=== PATIENT | male | born 1935 ===

== ENCOUNTER 2018-02-15 16:27 | Emergency (ER) | payer MEDICARE, MEDICAID ==
[2018-02-15 16:27] VITALS: BMI 42.0
[2018-02-15 16:47] VITALS: O2SAT 97
--- NOTE | 2018-02-15 18:05 | ED PDOC ---
HPI: Trauma/Fall <Jordyn Flores - Last Filed: 02/15/18 19:21> - HPI Chief Complaint (Provider): Right Arm Pain, Left Hip Pain, Lower Back Pain History Per: Patient History/Exam Limitations: no limitations Onset/Duration Of Symptoms: Days (x3) Injury Occurred (Timing): Days Ago: (2) Location Of Injury: Right: Arm, Left: Hip Severity: None Associated Symptoms: denies: Dizziness, LOC - Fall Fall:Prior To Injury: Slipped <Vandana Diaz - Last Filed: 02/16/18 11:07> - HPI Time Seen by Provider: 02/15/18 17:00 Chief Complaint (Nursing): Back Pain Additional Complaint(s): 83 year old male with a past medical history of hypertension and arthritis presents to the emergency department post fall complaining of left hip pain, right arm pain and lower pain x3 days. Patient states that on Friday he was getting off then bus when he fell backwards landing on his right arm on back. He reports that since then he has been having pain in his left hip, right arm and lower back. Patient states that immediately after falling he went to see his primary care provider who sent him to outpatient radiology where he had xrays performed which were all negative, no fractures. He states that he has been taking advil but however the pain still persists. Patient reports that his right elbow is swollen and bruised. In addition, the patient states that the pain in his lower back is exacerbated by walking but he has been ambulatory since the fall. Denies head injury and any other injury. Also denies chest pain , syncope, shortness of breath. (Vandana Diaz) Past Medical History <Jordyn Flores - Last Filed: 02/15/18 19:21> Reviewed: Historical Data, Nursing Documentation, Vital Signs - Medical History PMH: Arthritis, Asthma, HTN, Rheumatoid Arthritis Denies: Chronic Kidney Disease - Surgical History Other surgeries: left shoulder surgery - Family History Family History: States: Unknown Family Hx <Vandana Diaz - Last Filed: 02/16/18 11:07> Vital Signs: Last Vital Signs Temp 98 F 02/15/18 21:24 Pulse 78 02/15/18 21:24 Resp 18 02/15/18 21:24 BP 158/87 H 02/15/18 21:24 Pulse Ox 97 02/16/18 05:14 - Home Medications Home Medications: Ambulatory Orders Medication Instructions Recorded Adalimumab [Humira Pen] 40 mg SQ QWK 07/28/17 Cyanocobalamin/Folic AC/Vit B6 [Tl 1 tab PO DAILY 07/28/17 Nba Rx Tablet] Losartan Potassium 50 mg PO DAILY 07/28/17 Montelukast Sodium [Singulair] 10 mg PO HS 07/28/17 - Allergies Allergies/Adverse Reactions: Allergies Allergy/AdvReac Type Severity Reaction Status Date / Time No Known Allergies Allergy Verified 02/15/18 16:44 Review of Systems ROS Statement: Except As Marked, All Systems Reviewed And Found Negative Cardiovascular: Negative for: Chest Pain Musculoskeletal: Positive for: Arm Pain (right), Back Pain (lower), Other (left hip pain) Neurological: Negative for: Headache, Dizziness <Vandana Diaz A - Last Filed: 02/16/18 11:07> Physical Exam - Reviewed Nursing Documentation Reviewed: Yes Vital Signs Reviewed: Yes - Physical Exam Appears: Positive for: Non-toxic, No Acute Distress Head Exam: Positive for: ATRAUMATIC, NORMAL INSPECTION, NORMOCEPHALIC Skin: Positive for: Normal Color, Warm, Dry. Negative for: Rash Eye Exam: Positive for: Normal appearance, EOMI, PERRL. Negative for: Nystagmus ENT: Positive for: Normal ENT Inspection. Negative for: Nasal Congestion, Tonsillar Exudate, Tonsillar Swelling Neck: Positive for: Normal, Painless ROM, Supple Cardiovascular/Chest: Positive for: Regular Rate, Rhythm, Chest Non Tender. Negative for: Tachycardia Respiratory: Positive for: Normal Breath Sounds. Negative for: Rales, Rhonchi, Wheezing, Respiratory Distress Gastrointestinal/Abdominal: Positive for: Normal Exam, Bowel Sounds, Soft. Negative for: Tenderness, Mass, Guarding, Rebound Back: Positive for: Other (back lower back diffuse tenderness ;no ecchymosis no deformities ). Negative for: L CVA Tenderness, R CVA Tenderness Extremity: Positive for: Swelling (Swelling present to medial aspect of right elbow with ecchymosis present to ulnar aspectas well as tenderness and painful rom.), Other (Left hip: Normal exam). Negative for: Deformity (left shoulder painful rom no deformity no swelling) Neurologic/Psych: Positive for: Alert, Oriented, Gait <Vandana Diaz - Last Filed: 02/16/18 11:07> - ECG O2 Sat by Pulse Oximetry: 97 (RA) Pulse Ox Interpretation: Normal <Vandana Diaz - Last Filed: 02/16/18 11:07> Medical Decision Making <Jordyn Flores - Last Filed: 02/15/18 19:21> <Vandana Diaz - Last Filed: 02/16/18 11:07> Medical Decision Makin Initial Impression 83 y/o male presenting with right arm injury, left hip injury and back injury Differentials: elbow fracture, shoulder fracture, hip fracture and lumbar spine fracture Initial plan: * CT Lumbar Spine w/o Contrast * Motrin Tab 400mg PO * RAD elbow right * RAD left Hip * RAD right shoulder * Reevaluation * * Elbow xray reviewd: possible medial epicondilar fracture. * Hip xray: quiestionable femoral neck fracture * Shoiulder xray: no acute findings * CT hip ordered Documented by Christiana Jim acting as a scribe for Vandana Diaz MD. All medical record entries made by the Scribe were at my direction and personally dictated by me. I have reviewed the chart and agree that the record accurately reflects my personal performance of the history, physical exam, medical decision making, and the department course for this patient. I have also personally directed, reviewed, and agree with the discharge instructions and disposition. (Vandana Diaz) Disposition - Patient ED Disposition Is Patient to be Admitted: Transfer of Care Counseled Patient/Family Regarding: Studies Performed, Diagnosis, Need For Followup - Disposition Disposition: Transfer of Care Disposition Time: 19:00 Patient Signed Over To: Ileana Trammell <Jordyn Flores - Last Filed: 02/15/18 19:21> <Vandana Diaz - Last Filed: 02/16/18 11:07> - Clinical Impression Clinical Impression: Elbow fracture, right, Back injury, Injury of left hip - Disposition Referrals: [facility] [Outside] Jefferson Thompson III, MD [Staff Provider] - Condition: IMPROVED Additional Instructions: follow up with orthopedist as instructed within 2 days take tylenol for pain as needed bring copy of CT with you return to the ED with any worsening or concerning symptoms Instructions: Elbow Fracture (DC) Print Language: VINCENTIAN
--- NOTE | 2018-02-15 19:49 | ED PDOC ---
- ECG O2 Sat by Pulse Oximetry: 97 (RA) Pulse Ox Interpretation: Normal Medical Decision Making Medical Decision Making: Patient signed out to provider at [address] Diaz pending CT scan. 1912 EXAM: CT Lumbar Spine Without Intravenous Contrast EXAM DATE/TIME: 02/15/2018 5:18 PM CLINICAL HISTORY: 83 years old, male; Injury or trauma; Fall; Initial encounter; Blunt trauma ( contusions or hematomas); Additional info: Lower back pain injury fall TECHNIQUE: Axial computed tomography images of the lumbar spine without intravenous contrast. All CT scans at this facility use one or more dose reduction techniques, viz.: automated exposure control; ma/kV adjustment per patient size (including targeted exams where dose is matched to indication; i.e. head); or iterative reconstruction technique. COMPARISON: No relevant comparison exam is available at the time of interpretation. FINDINGS: Vertebrae: The spine is imaged from the top of L1 through mid S3. No acute fracture. 10 x 10 x 14 mm sclerotic lesion in the L1 vertebral body, nonaggressive in appearance. Slight anterolisthesis of L4 relative to L5 is likely secondary to degenerative changes. Otherwise anatomic alignment of the imaged spine. Moderate to severe multilevel facet arthropathy. Large multilevel osteophytes. Discs/Spinal canal/Neural foramina: No evident acute abnormality within the spinal canal. Moderate to severe neuroforaminal narrowing at multiple levels secondary to degenerative changes, worst at L4-L5 where there is also severe central canal narrowing secondary to facet hypertrophy and a diffuse disc bulge. Soft tissues: No acute findings. Several fluid attenuation left renal lesions, the largest of which is incompletely imaged but measures at least 2.5 cm. IMPRESSION: 1. No acute fracture or traumatic malalignment. 2. Multilevel degenerative changes. Moderate to severe neuroforaminal narrowing at multiple levels secondary to the degenerative changes, worst at L4-L5 where there is also severe central canal narrowing secondary to facet hypertrophy and a diffuse disc bulge. 3. 14 mm sclerotic lesion in the L1 vertebral body, incompletely characterized but nonaggressive in appearance. Follow up per institution protoco 4. Several fluid attenuation left renal lesions are incompletely characterized but most likely to be benign cysts. Follow up per institution protocol. 2206 EXAM: CT Left Lower Extremity Without Intravenous Contrast, Hip CLINICAL HISTORY: 83 years old, male; Pain; Hip; Left; Additional info: Left hip pain questionable xray TECHNIQUE: Axial computed tomography images of the left hip without intravenous contrast. All CT scans at this facility use one or more dose reduction techniques, viz.: automated exposure control; ma/kV adjustment per patient size (including targeted exams where dose is matched to indication; i.e. head); or iterative reconstruction technique. Coronal and sagittal reformatted images were created and reviewed. COMPARISON: CR - HIP W/WO PELVIS 2-3 VIEWS LT 2018-02-15 17:28 FINDINGS: Bones/joints: No acute fracture. Early degenerative changes of LEFT hip joint. Early degenerative changes of sacroiliac joints. Early degenerative changes of pubic symphysis. Moderate degenerative changes within lower lumbar spine. No dislocation. Minimal enthesopathy. Soft tissues: Unremarkable. Vasculature: Atherosclerotic disease of visualized arteries. Bowel: Colonic diverticula. Reproductive: Enlarged prostate gland. IMPRESSION: 1. No fracture. If hip pain persists, consider MRI to exclude occult fracture/ internal derangement. 2. Prostate enlargement. Followup as clinically warranted. 3. Incidental/non-acute findings are described above. discusssed results of CT with patietn and family at bedside. givn copy of CTs as per their requests. given referral for orthopedics as instructed. Documented by Christiana Jim acting as a scribe for Ileana Trammell MD. All medical record entries made by the Scribe were at my direction and personally dictated by me. I have reviewed the chart and agree that the record accurately reflects my personal performance of the history, physical exam, medical decision making, and the department course for this patient. I have also personally directed, reviewed, and agree with the discharge instructions and disposition. Disposition Counseled Patient/Family Regarding: Studies Performed, Diagnosis - Clinical Impression Clinical Impression: Elbow fracture, right, Back injury, Injury of left hip - POA Present On Arrival: None - Disposition Referrals: [facility] [Outside] Jefferson Thompson III, MD [Staff Provider] - Disposition: Routine/Home Disposition Time: 20:15 Condition: IMPROVED Additional Instructions: follow up with orthopedist as instructed within 2 days take tylenol for pain as needed bring copy of CT with you return to the ED with any worsening or concerning symptoms Instructions: Elbow Fracture (DC) Print Language: PORTUGUESE
--- NOTE | 2018-02-15 21:07 | CT ---
EXAM: CT Left Lower Extremity Without Intravenous Contrast, Hip CLINICAL HISTORY: 83 years old, male; Pain; Hip; Left; Additional info: Left hip pain questionable xray TECHNIQUE: Axial computed tomography images of the left hip without intravenous contrast. All CT scans at this facility use one or more dose reduction techniques, viz.: automated exposure control; ma/kV adjustment per patient size (including targeted exams where dose is matched to indication; i.e. head); or iterative reconstruction technique. Coronal and sagittal reformatted images were created and reviewed. COMPARISON: CR - HIP W/WO PELVIS 2-3 VIEWS LT 2018-02-15 17:28 FINDINGS: Bones/joints: No acute fracture. Early degenerative changes of LEFT hip joint. Early degenerative changes of sacroiliac joints. Early degenerative changes of pubic symphysis. Moderate degenerative changes within lower lumbar spine. No dislocation. Minimal enthesopathy. Soft tissues: Unremarkable. Vasculature: Atherosclerotic disease of visualized arteries. Bowel: Colonic diverticula. Reproductive: Enlarged prostate gland. IMPRESSION: 1. No fracture. If hip pain persists, consider MRI to exclude occult fracture/internal derangement. 2. Prostate enlargement. Followup as clinically warranted. 3. Incidental/non-acute findings are described above.
[2018-02-15 21:24] VITALS: BP 158/87; PULSE 78; RESP 18; TEMP 98
--- NOTE | 2018-02-16 07:18 | RAD ---
PROCEDURE: Left Hip with Pelvis X-ray Radiographs. HISTORY: left hip pain injury COMPARISON: Left hip with pelvis radiographs 11/16/2008. FINDINGS: BONES: No interval fracture or bony destructive lesion appreciable the left hip joint. Pelvic ring appears intact without fracture as well. JOINTS: There is a mild increase in joint space narrowing with cortical sclerosis again appreciated and limited osteophyte development. No dislocation or subluxation appreciated. Degenerative changes are also noted in the right hip joint as well as bilateral sacroiliac joints though the SI joints a less involving the bilateral hip joints. Pubic symphysis appears intact. Incidental note is made inferior multilevel lumbar spondylosis. SOFT TISSUES: Normal. OTHER FINDINGS: None. IMPRESSION: No acute fracture or dislocation left hip joint. degenerative changes are mildly increased and are overall moderate severe at the left hip joint in the interval. Similar degenerative changes in the right hip joint with lesser degenerative changes seen the bilateral sacroiliac joints.
--- NOTE | 2018-02-16 07:20 | RAD ---
PROCEDURE: Radiographs of the Right Shoulder HISTORY: shoulder pain injury COMPARISON: No prior. FINDINGS: BONES: No acute fracture or destructive bony lesion identified. JOINTS: Advanced degenerative changes seen the acromioclavicular joint where there is marked neck narrowing of the joint space and prominent superior and inferior osteophyte development. Similar but lesser degenerative changes seen the glenohumeral joint. No subluxation or dislocation. SOFT TISSUES: Normal. OTHER FINDINGS: None. 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 No acute fracture or dislocation right shoulder.
--- NOTE | 2018-02-16 07:28 | RAD ---
PROCEDURE: Radiographs of the right elbow. HISTORY: elbow pain swelling injury COMPARISON: No prior. FINDINGS: BONES: Degenerative enthesophytes are favored over fractures at the medial epicondyle distal right humerus. Clinically correlate further. No definitive displaced fracture is appreciate throughout the exam and there is no destructive bony lesion either. However, a joint effusion is appreciated anterolaterally and underlying fracture is difficult to fully exclude. Clinically correlate further. JOINTS: No subluxation or dislocation appreciated. Advanced degenerative change are manifest by cortical sclerosis, joint space narrowing and marginal osteophytes throughout the right elbow joint spaces. SOFT TISSUES: Limited soft tissue edema is seen at the medial subcutaneous fat mildly. No emphysema soft tissue changes or retained radiodense foreign body appreciable. JOINT EFFUSION: None. OTHER FINDINGS: None. IMPRESSION: A small joint effusions noted anterolaterally at the right elbow good definitive fracture not apparent at this time. It is difficult to differentiate between probable enthesophytes and possible nondisplaced fracture at the medial epicondyle distal right humerus as discussed above. Soft tissue edema overlies medial elbow within subcutaneous fat. Clinically correlate further. Advanced degenerative joint disease as per above.
--- NOTE | 2018-02-16 08:52 | CT ---
PROCEDURE: CT Lumbar Spine without contrast HISTORY: lower back pain injury fall COMPARISON: Lumbar spine radiographs 12/01/2009. TECHNIQUE: Axial computed tomography images were obtained of the lumbar spine without the use of intravenous contrast. Coronal and sagittal reformatted images were created and reviewed. Radiation dose: Total exam DLP = 667.77 mGy-cm. This CT exam was performed using one or more of the following dose reduction techniques: Automated exposure control, adjustment of the mA and/or kV according to patient size, and/or use of iterative reconstruction technique. FINDINGS: VERTEBRAE: There is a limited grade 1 spondylolisthesis at L4-5 with L4 anterior to L5 by less than 1 cm. This on the basis of gross facet joint degenerative arthropathy. No spondylolysis is identified. Gross multilevel spondylosis appreciated anteriorly at the upper mid lumbar levels including bridging anterior osteophytes. No prominent posterior osteophyte ridging however. Degenerative vacuum disc changes are identified L5-S1 intervertebral disc. Multilevel facet joint degenerative arthropathy is identified. There is a stable sclerotic density seen at the L1 vertebral body superiorly, not significantly changed compared prior lumbar spine radiograph 12/01/2009. Visualized prevertebral paraspinal soft tissues reflect non aneurysmal atherosclerotic aortic iliac atherosclerosis. A few lucencies are seen in the left kidney which are poorly characterized due lack of intravenous contrast and lumbar spinal technique but potentially reflect renal cysts. DISCS/SPINAL CANAL/NEURAL FORAMINA: L1-2: Minimal disc bulging identified. [id number] right neural foraminal stenosis due to asymmetry in facet joint degenerative osteophyte development. No significant left neural foraminal stenosis. L2-3: The limited disc bulging and moderate facet arthropathy are identified without causing significant central canal stenosis. No significant neural foraminal stenosis although a mild disc osteophyte complex is seen toward the right. L3-4: A circumferential disc bulge combines with moderate facet arthropathy to result in a mild central canal stenosis with borderline bilateral neural foraminal stenoses, degenerative. L4-5: A circumferential disc osteophyte complex is appreciated as well as grade 1 spondylolisthesis combining with gross facet joint arthropathy resulting in severe central canal stenosis and moderate to severe severe neural foraminal stenoses bilaterally. L5-S1: Limited disc bulging is appreciated without significant central canal or neural foraminal stenosis identified. Facet arthropathy appears advanced. PARASPINAL SOFT TISSUES: As above. OTHER FINDINGS: None. IMPRESSION: 1. Severe central canal and mild moderate to severe bilateral neural foraminal stenoses are identified on the basis of a mild grade 1 spondylolisthesis at L4-5 combining with disc bulging and gross facet joint arthropathy. No spondylolysis. 2. Mild degenerative central canal stenosis at L3-4. 3. No gross disc herniation throughout. MRI can be utilized for greater intervertebral disc and local soft tissue evaluation of the lumbar spine. 4. Multilevel facet joint arthropathy with occasional associated neuroforaminal stenoses as discussed above. 5. Nonaggressive appearing L1 vertebral body sclerosis not significantly changed compared prior lumbar spine radiographs 12/01/2009. 6. Possible left renal cysts. Consider follow-up ultrasound or CT. Concordant preliminary report from [facility], 02/15/2018.
== END 2018-02-15 21:54 | disposition home or self-care (01) ==
LOC: H.ER 16:27
DX: S52.501A Unspecified fracture of the lower end of right radius, initial encounter for closed fracture (principal); S39.92XA Unspecified injury of lower back, initial encounter; S79.912A Unspecified injury of left hip, initial encounter; S49.91XA Unspecified injury of right shoulder and upper arm, initial encounter; W19.XXXA Unspecified fall, initial encounter; Y92.410 Unspecified street and highway as the place of occurrence of the external cause; G56.00 Carpal tunnel syndrome, unspecified upper limb; I10 Essential (primary) hypertension; J45.909 Unspecified asthma, uncomplicated; M06.9 Rheumatoid arthritis, unspecified; M43.16 Spondylolisthesis, lumbar region; M48.061 Spinal stenosis, lumbar region without neurogenic claudication; M51.26 Other intervertebral disc displacement, lumbar region; M51.36 Other intervertebral disc degeneration, lumbar region; N40.0 Benign prostatic hyperplasia without lower urinary tract symptoms

== ENCOUNTER 2018-02-16 11:05 | Emergency (ER) | payer MEDICARE, MEDICAID ==
[2018-02-16 11:06] VITALS: BMI 42.0
[2018-02-16 11:26] VITALS: TEMP 98.2; O2SAT 95
[2018-02-16 12:14] VITALS: RESP 18
--- NOTE | 2018-02-16 12:50 | ED PDOC ---
Upper Extremity Pain/Injury Time Seen by Provider: 02/16/18 12:13 Chief Complaint (Nursing): Upper Extremity Problem/Injury Chief Complaint (Provider): Right arm pain and swelling History Per: Patient History/Exam Limitations: no limitations Onset/Duration Of Symptoms: Days (x2) Current Symptoms Are (Timing): Still Present Additional Complaint(s): Patient reports swelling to the right hand after sustaining a fall yesterday. He fell getting off a bus and landed on his right side and back. Patient was evaluated here yesterday with x-rays and CTs, and was discharged home with a right arm splint. He states the splint is too tight. Denies any re-injury. Otherwise: (-) numbness, (-) other injury. PMD: Dr. Yeyo Alavrenga Past Medical History Reviewed: Historical Data, Nursing Documentation, Vital Signs Vital Signs: Last Vital Signs Temp 98.2 F 02/16/18 12:10 Pulse 81 02/16/18 12:10 Resp 18 02/16/18 12:10 BP 171/79 H 02/16/18 12:10 Pulse Ox 95 02/16/18 12:10 - Medical History PMH: Arthritis, Asthma, HTN, Rheumatoid Arthritis Denies: Chronic Kidney Disease - Surgical History Other surgeries: Left shoulder surgery - Family History Family History: States: Unknown Family Hx - Social History Current smoker - smoking cessation education provided: No Alcohol: None Drugs: Denies - Home Medications Home Medications: Ambulatory Orders Medication Instructions Recorded Adalimumab [Humira Pen] 40 mg SQ QWK 07/28/17 Cyanocobalamin/Folic AC/Vit B6 [Tl 1 tab PO DAILY 07/28/17 Nba Rx Tablet] Losartan Potassium 50 mg PO DAILY 07/28/17 Montelukast Sodium [Singulair] 10 mg PO HS 07/28/17 - Allergies Allergies/Adverse Reactions: Allergies Allergy/AdvReac Type Severity Reaction Status Date / Time No Known Allergies Allergy Verified 02/15/18 16:44 Review of Systems ROS Statement: Except As Marked, All Systems Reviewed And Found Negative Musculoskeletal: Positive for: Arm Pain, Hand Pain Neurological: Negative for: Numbness Physical Exam - Reviewed Nursing Documentation Reviewed: Yes Vital Signs Reviewed: Yes - Physical Exam Comments: GENERAL APPEARANCE: Patient is awake, alert, oriented x 3, in no acute distress. SKIN: Warm, dry; (-) cyanosis. RIGHT UPPER EXTREMITY: Posterior orthoglass elbow splint in place; (+) swelling noted to right hand, (-) point tenderness, (+) cap refill < 2 sec, 2+ distal pulses, (-) distal neurovascular deficit NEURO AND PSYCH: Mental status as above. - ECG O2 Sat by Pulse Oximetry: 95 (RA) Pulse Ox Interpretation: Normal Medical Decision Making Medical Decision Making: Reviewed records from 02/15 visit: X-ray right shoulder IMPRESSION: Advanced degenerative joint disease right acromioclavicular greater than glenohumeral joints. No acute fracture or dislocation right shoulder. X-ray right elbow IMPRESSION: A small joint effusions noted anterolaterally at the right elbow good definitive fracture not apparent at this time. It is difficult to differentiate between probable enthesophytes and possible nondisplaced fracture at the medial epicondyle distal right humerus as discussed above. Soft tissue edema overlies medial elbow within subcutaneous fat. Clinically correlate further. Advanced degenerative joint disease as per above. CT left hip IMPRESSION: 1. No fracture. If hip pain persists, consider MRI to exclude occult fracture/ internal derangement. 2. Prostate enlargement. Followup as clinically warranted. 3. Incidental/non-acute findings are described above. CT lumbar spine IMPRESSION: 1. Severe central canal and mild moderate to severe bilateral neural foraminal stenoses are identified on the basis of a mild grade 1 spondylolisthesis at L4- 5 combining with disc bulging and gross facet joint arthropathy. No spondylolysis. 2. Mild degenerative central canal stenosis at L3-4. 3. No gross disc herniation throughout. MRI can be utilized for greater intervertebral disc and local soft tissue evaluation of the lumbar spine. 4. Multilevel facet joint arthropathy with occasional associated neuroforaminal stenoses as discussed above. 5. Nonaggressive appearing L1 vertebral body sclerosis not significantly changed compared prior lumbar spine radiographs 12/01/2009. 6. Possible left renal cysts. Consider follow-up ultrasound or CT. Time: 12:31 Plan: - Ortho-Glass posterior elbow splint by PA - X-ray and CT results reviewed by PA. Decision made to order CT of the right upper extremity to rule out occult fracture at right elbow. CT RIGHT UPPER EXTREMITY: Impression: No acute fracture, subluxation or dislocation. 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 Local soft tissue edema is appreciated at the posteromedial elbow soft tissues as well as the distal arm soft tissues posteriorly. On reevaluation patient remains awake, alert, oriented x 3 and is laying in bed comfortably. On exam, his right upper extremity appears to be improving with decreased swelling in the R hand, distal pulses, sensation and capillary refill are normal and intact. Patient informed of CT findings. Splint not necessary at this time. Advised to ice and elevate the area. BP 166/99. Based on history, exam and diagnostic results plan will be for discharge home. Advised to follow up with primary care physician in 1-2 days without fail. Return to the emergency room at any time for any new or worsening symptoms. Patient states he fully agrees with and understands discharge instructions. States that he agrees with the plan and disposition. Verbalized and repeated discharge instructions and plan. I have given the patient opportunity to ask any additional questions. Scribe Attestation: Documented by Rhonda Boateng, acting as a scribe for Aye Soriano PA-C. Provider Scribe Attestation: All medical record entries made by the Scribe were at my direction and personally dictated by me. I have reviewed the chart and agree that the record accurately reflects my personal performance of the history, physical exam, medical decision making, and the department course for this patient. I have also personally directed, reviewed, and agree with the discharge instructions and disposition. Disposition - Clinical Impression Clinical Impression: Swelling of right hand - Patient ED Disposition Is Patient to be Admitted: No Counseled Patient/Family Regarding: Studies Performed, Diagnosis, Need For Followup - Disposition Disposition: Routine/Home Disposition Time: 15:30 Condition: STABLE Additional Instructions: Thank you for letting us take care of you today. You were treated for R hand swelling, splint removal. The emergency medical care you received today was directed at your acute symptoms. Ice and elevate your hand. Take tylenol over the counter for pain only It may take several days for your symptoms to resolve. Return to the Emergency Department if your symptoms worsen, do not improve, or if you have any other problems. Please contact your doctor in 2 days for re-evaluation and follow up. Bring any paperwork you were given at discharge with you along with any medications you are taking to your follow up visit. Our treatment cannot replace ongoing medical care by a primary care provider (PCP) outside of the emergency department. Thank you for allowing the [facility] team to be part of your care today. Instructions: Swelling Forms: [employer] (H[place]er) Print Language: NAMIBIAN - PA / [employer]E [employer] / Resident Statement MD/DO has reviewed & agrees with the documentation as recorded.
--- NOTE | 2018-02-16 14:09 | CT ---
PROCEDURE: CT of the Left Hip. HISTORY: pain, fall, r/o fx elbow COMPARISON: Left hip with pelvis 02/15/2018 as well. TECHNIQUE: A volumetric CT examination through the left hip joint was performed without intravenous contrast. Coronal and sagittal maximum intensity projection reformatted images were generated. Contrast Dose: None Radiation dose:Total exam DLP = 606.92 mGy-cm. This CT exam was performed using one or more of the following dose reduction techniques: Automated exposure control, adjustment of the mA and/or kV according to patient size, and/or use of iterative reconstruction technique. FINDINGS: BONES: No fracture, subluxation or dislocation appreciate related to left hip joint with the femoral head remaining normal in size and overall density. Note is made of joint space narrowing and cortical sclerosis well as osteophyte development compatible with advanced osteoarthritis. Heterotopic bone or old chip or avulsion fracture seen related to the superior acetabulum laterally. Left degenerative changes are incidentally captured the left sacroiliac joint appearing moderate severity. Density through the abductor, abductor, flexor and extensor compartment musculature appears unremarkable. Incidental calcifications are seen at the neurovascular sheath at the left inguinal region extending into the proximal visualized thigh. LEFT HIP JOINT: No subluxation or dislocation. Degenerative changes as discussed above. SOFT TISSUES: Distended urinary bladder. IMPRESSION: No acute fracture, subluxation or dislocation. 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
[2018-02-16 15:45] VITALS: BP 166/99; PULSE 74
== END 2018-02-16 16:00 | disposition home or self-care (01) ==
LOC: H.ER 11:05
DX: S69.91XA Unspecified injury of right wrist, hand and finger(s), initial encounter (principal); V78.4XXA Person boarding or alighting from bus injured in noncollision transport accident, initial encounter; I10 Essential (primary) hypertension; J45.909 Unspecified asthma, uncomplicated; M06.9 Rheumatoid arthritis, unspecified; N40.0 Benign prostatic hyperplasia without lower urinary tract symptoms; M51.36 Other intervertebral disc degeneration, lumbar region